=== PATIENT | female | born 1965 | race Caucasian/White ===

== ENCOUNTER 2022-03-01 17:25 | Observation (INO) | payer MEDICARE ==
[~2022-03-01] VITALS: Ht 167.6 cm; Wt 82.8 kg
[2022-03-01 19:06] LABS: HEMOGLOBIN 9.8 gm/dl (12.3-15.3); RED BLOOD COUNT 2.97 M/UL (4.00-5.10); WHITE BLOOD COUNT 9.7 K/UL (4.5-11.0)
[2022-03-01 19:42] LABS: BUN/CREATININE RATIO 18 (0-10)
[2022-03-01 22:02] LABS: BORDETELLA PARAPERTUSSIS Not Detected (Not Detectd); BORDETELLA PERTUSSIS Not Detected (Not Detectd); CHLAMYDIA PNEUMONIAE Not Detected (Not Detectd); CORONAVIRUS HKU1 Not Detected (Not Detectd); CORONAVIRUS NL63 Not Detected (Not Detectd); CORONAVIRUS OC43 Not Detected (Not Detectd); CORONOAVIRUS 229E Not Detected (Not Detectd); HUMAN METAPNEUMOVIRUS Not Detected (Not Detectd); HUMAN RHINOVIRUS/ENTEROVIRUS Not Detected (Not Detectd); INFLUENZA A Not Detected (Not Detectd); INFLUENZA B Not Detected (Not Detectd); MYCOPLASMA PNEUMONIAE Not Detected (Not Detectd); PARAINFLUENZA VIRUS 1 Not Detected (Not Detectd); PARAINFLUENZA VIRUS 2 Not Detected (Not Detectd); PARAINFLUENZA VIRUS 3 Not Detected (Not Detectd); PARAINFLUENZA VIRUS 4 Not Detected (Not Detectd); RESPIRATORY SYNCYTIAL VIRUS Not Detected (Not Detectd)
[2022-03-01 23:21] LABS: SARS-CoV-2 NOT DETECTED (Not Detectd)
[2022-03-02] MEDS ORDERED: SYMBICORT 80-41 INHA INH (00:01)
[2022-03-02] MEDS ORDERED: PROVENTIL HFA6.7 GM INH (00:04)
[2022-03-02] MEDS ORDERED: BACLOFEN20 MG PO (00:04)
[2022-03-02] MEDS ORDERED: WELLBUTRIN SR150 MG PO (00:05)
[2022-03-02] MEDS ORDERED: PROTONIX40 MG PO (00:05)
[2022-03-02] MEDS ORDERED: PAXIL40 MG PO (00:06)
[2022-03-02] MEDS ORDERED: HYDROCHLOROTH12.5 MG PO (00:06)
[2022-03-02] MEDS ORDERED: PRAVASTATIN SOD40 MG PO (00:07)
[2022-03-02] MEDS ORDERED: CLOPIDOGREL75 MG PO (00:07)
[2022-03-02] MEDS ORDERED: LISINOPRIL10 MG PO (00:07)
[2022-03-02] MEDS ORDERED: IBUPROFEN800 MG PO (00:08)
[2022-03-02] MEDS ORDERED: VITAMIN D21250 MCG PO (00:10)
[2022-03-02] MEDS ORDERED: WOMEN'S 50 PLU1 EACH PO (00:11)
[2022-03-02] MEDS ORDERED: GABAPENTIN300 MG PO (00:34)
[2022-03-02] MEDS ORDERED: HYDROCODON-ACE1 EAC2 PO (00:34)
[2022-03-02 03:19] LABS: HEMOGLOBIN 10.4 gm/dl (12.3-15.3); RED BLOOD COUNT 3.17 M/UL (4.00-5.10); WHITE BLOOD COUNT 8.8 K/UL (4.5-11.0)
[2022-03-02 03:51] LABS: BUN/CREATININE RATIO 15 (0-10)
[2022-03-03 01:40] LABS: HEMOGLOBIN 9.9 gm/dl (12.3-15.3); RED BLOOD COUNT 3.06 M/UL (4.00-5.10)
[2022-03-03 01:41] LABS: WHITE BLOOD COUNT 4.1 K/UL (4.5-11.0)
[2022-03-03 02:04] LABS: BUN/CREATININE RATIO 12 (0-10)
[2022-03-03] MEDS ORDERED: AMOX TR-K CLV1 EAC4 PO (08:59)
== END 2022-03-03 10:13 | disposition home or self-care (01) ==
LOC: ER1 17:25 → PROG CARE 22:33 → CDU 22:33 → PROG CARE 22:33
PROVIDERS: Family Medicine; Internal Medicine; Physician Assistant; ADMIT Internal Medicine
DX: R50.9 Fever, unspecified (principal); Z20.822 Contact with and (suspected) exposure to COVID-19; E86.0 Dehydration; J44.9 Chronic obstructive pulmonary disease, unspecified; G89.29 Other chronic pain; M54.9 Dorsalgia, unspecified; F11.20 Opioid dependence, uncomplicated; F31.9 Bipolar disorder, unspecified; H54.62 Unqualified visual loss, left eye, normal vision right eye; G93.40 Encephalopathy, unspecified; E87.6 Hypokalemia; E83.39 Other disorders of phosphorus metabolism; F17.210 Nicotine dependence, cigarettes, uncomplicated; Z79.02 Long term (current) use of antithrombotics/antiplatelets; Z79.899 Other long term (current) drug therapy; Z86.73 Personal history of transient ischemic attack (TIA), and cerebral infarction without residual deficits
CPT/HCPCS: 0240U; 36415; 70450; 71045; 80048; 80053; 80307; 81001; 82140; 82270; 82550; 82553; 82607; 82746; 83540; 83550; 83605; 83735; 83880; 84100; 84132; 84439; 84443; 84481; 84484; 85025; 85045; 85610; 85652; 85730; 86140; 87040; 87081; 87086; 87633; 93005; 96374; 99285; G0378; J0696; J1650; J2543; J3475; J7070

== ENCOUNTER 2022-03-03 23:41 | Emergency (ER) | payer MEDICARE ==
[~2022-03-03 23:41] MED LIST: AMOX TR-K CLV1 EAC4 PO; BACLOFEN20 MG PO; CLOPIDOGREL75 MG PO; GABAPENTIN300 MG PO; HYDROCHLOROTH12.5 MG PO; HYDROCODON-ACE1 EAC2 PO; IBUPROFEN800 MG PO; LISINOPRIL10 MG PO; PAXIL40 MG PO; PRAVASTATIN SOD40 MG PO; PROTONIX40 MG PO; PROVENTIL HFA6.7 GM INH; SYMBICORT 80-41 INHA INH; VITAMIN D21250 MCG PO; WELLBUTRIN SR150 MG PO; WOMEN'S 50 PLU1 EACH PO
[2022-03-04 01:48] LABS: HEMOGLOBIN 10.6 gm/dl (12.3-15.3); RED BLOOD COUNT 3.24 M/UL (4.00-5.10)
[2022-03-04 01:52] LABS: WHITE BLOOD COUNT 9.7 K/UL (4.5-11.0)
[2022-03-04 02:08] LABS: BUN/CREATININE RATIO 9 (0-10)
== END 2022-03-04 05:45 | disposition home or self-care (01) ==
LOC: ER1 23:41
PROVIDERS: Physician Assistant
DX: J44.9 Chronic obstructive pulmonary disease, unspecified (principal); I10 Essential (primary) hypertension; F17.210 Nicotine dependence, cigarettes, uncomplicated; Z86.73 Personal history of transient ischemic attack (TIA), and cerebral infarction without residual deficits; Z90.89 Acquired absence of other organs; Z90.710 Acquired absence of both cervix and uterus; Z20.822 Contact with and (suspected) exposure to COVID-19
CPT/HCPCS: 0240U; 71045; 80053; 81001; 82550; 82553; 83605; 84484; 85025; 85379; 85610; 85730; 87040; 87086; 93005; 96374; 96375; 99285; J0696; J2405; Q9967

== ENCOUNTER → 2022-03-26 | Outpatient (CLI) | payer MEDICARE | LOC: US 15:26 | DX: M79.605 Pain in left leg (principal) | CPT/HCPCS: 93971 ==